=== PATIENT | female | born 1955 | race African-American/Black ===

== ENCOUNTER → 2017-06-12 | Outpatient (CLI) | payer OTHER ==
--- NOTE | 2017-06-12 17:04 | KCIC ---
Transabdominal transvaginal sonography of the pelvis Clinical indications: Postmenopausal bleeding. COMPARISON: None available. Transabdominal sonography: The uterus is anteverted in position. The endometrial canal is poorly visualized. Therefore, transvaginal sonography will be performed. No free fluid is seen within the cul-de-sac. Neither ovary is visualized by transabdominal exam. No adnexal mass is seen. Transvaginal sonography: The longitudinal and AP and transverse dimensions of the uterus are 5.9 cm and 2.7 cm and 3.8 cm respectively. The endometrial canal measures 1.2 mm in thickness which is normal. No uterine mass or fibroid is seen. No hyperemia of the endometrial canal is seen. No free fluid is seen within the cul-de-sac. The left ovary is normal and measures 2.0 cm and 1.3 cm and 1.8 cm in size. Color Doppler flow is seen within the left ovary. The right ovary is normal and measures 1.3 cm and 1.4 cm and 1.0 cm in size. IMPRESSION: Normal pelvic sonogram. Electronically signed by: Jose L Winn MD (06/12/2017 5:00 PM) [facility]
== END | disposition home or self-care (01) ==
LOC: KCIC US 12:18
PROVIDERS: ATTEND Obstetrics & Gynecology
DX: N95.0 Postmenopausal bleeding (principal)
CPT/HCPCS: 76830; 76856

== ENCOUNTER 2017-07-11 09:23 | Day surgery (SDC) | payer OTHER ==
[~2017-07-11 09:23] MED LIST: HYDROmorphone 2 MG/ML VIAL IV; LIDOCAINE 1% PF 2 ML VIAL. ID; MORPHINE SULFATE 2 MG/ML DISP.SYRIN. IV; ONDANSETRON PF 4 MG/2 ML VIAL. IV; PROCHLORPERAZINE 10 MG/2 ML VIAL. IV; fentaNYL PF VIAL 100 MCG/2 ML VIAL IV
[2017-07-11] MEDS: IV RINGERS,LACTATED 1000ML 1,000 ML IV (09:59)
[2017-07-11] MEDS ORDERED: fentaNYL PF VIAL 100 MCG/2 ML VIAL (11:24)
[2017-07-11] MEDS ORDERED: ONDANSETRON PF 4 MG/2 ML VIAL. (11:24)
[2017-07-11] MEDS ORDERED: LIDOCAINE 2% PF Vial for OR 5 ML VIAL. (11:24)
[2017-07-11] MEDS ORDERED: DEXAMETHASONE SOD PHOS 20 MG/5 ML VIAL. (11:24)
[2017-07-11] MEDS ORDERED: PROPOFOL 20 ML IV (11:24)
[2017-07-11] MEDS ORDERED: SEVOFLURANE 31 TO 60 MINUTES. IH (11:56)
[2017-07-11] MEDS ORDERED: ceFAZolin 1GM IVPB FOR OMNI 100 ML IV (11:57)
== END 2017-07-11 13:24 | disposition home or self-care (01) ==
LOC: SURG 09:23
DX: N84.1 Polyp of cervix uteri (principal); I10 Essential (primary) hypertension; K21.9 Gastro-esophageal reflux disease without esophagitis
CPT/HCPCS: 58558; 88305; J0690; J1100; J2405; J2704; J3010